=== PATIENT | female | born 1965 | race Caucasian/White ===

== ENCOUNTER → 2017-02-20 | Outpatient (CLI) | payer BC ==
--- NOTE | 2017-02-20 16:26 | REPMRS ---
Patient History The patient states she had a clinical breast exam in 02/16 Family history of ovarian cancer in paternal aunt at age 50 or over, endometrial cancer in paternal grandmother at age 60, and ovarian cancer in paternal grandmother at age 69. Took hormonal contraceptives for 8 years. Digital Woman Screen Mammo: February 20, 2017 - Exam #: [id number] Bilateral CC and MLO view(s) were taken. Technologist: Rosie Villalta, Technologist Prior study comparison: February 20, 2016, digital woman screen mammo performed at [facility] [employer] [facility]. February 14, 2015, digital woman screen mammo performed at [facility] [employer] [facility]. FINDINGS: There are scattered fibroglandular densities. There has been no change in the appearance of the mammogram from the prior studies. There is a mild amount of residual fibroglandular tissue which is fairly symmetric. There is no interval development of dominant mass, architectural distortion, or clustered microcalcification suggestive of malignancy. ASSESSMENT: BI-RADS/ACR category 1 mammogram. Negative. Recommendation Routine screening mammogram in 1 year (for women over age 40). This mammogram was interpreted with the aid of an FDA-approved computer-aided dectection system. Electronically Signed By: Jay Rosa MD 02/20/17 [id number]
== END ==
LOC: M WHC 14:34
PROVIDERS: ATTEND Nurse Practitioner Family
DX: Z12.31 Encounter for screening mammogram for malignant neoplasm of breast (principal); Z80.41 Family history of malignant neoplasm of ovary; Z92.0 Personal history of contraception; Z80.49 Family history of malignant neoplasm of other genital organs

== ENCOUNTER → 2018-02-24 | Outpatient (CLI) | payer BC | LOC: M WHC 14:35 | DX: Z12.31 Encounter for screening mammogram for malignant neoplasm of breast (principal); E65 Localized adiposity; Z78.0 Asymptomatic menopausal state; Z92.0 Personal history of contraception | CPT/HCPCS: 77067; G0123 ==

== ENCOUNTER → 2018-02-24 | Outpatient (REF) | payer BC | LOC: M SFHCWAGY 15:43 | DX: Z12.4 Encounter for screening for malignant neoplasm of cervix (principal) | CPT/HCPCS: G0123 ==

== ENCOUNTER → 2018-04-28 | Outpatient (REF) | payer BC ==
[2018-04-30 14:18] LABS: HPV HYBRID CAPTURE II Negative (Negative)
== END ==
LOC: M SFHCWAGY 11:35
DX: R87.615 Unsatisfactory cytologic smear of cervix (principal)
CPT/HCPCS: G0123

== ENCOUNTER 2019-02-17 07:14 | Day surgery (SDC) | payer BC ==
[~2019-02-17] VITALS: Ht 165.1 cm; Wt 62.1 kg
[~2019-02-17 07:14] MED LIST: LIDOCAINE 1% MDV 20ML VIAL SQ PRN; LR 1,000 ML IV ONE; ceFAZolin SOD 1 GM in D5W MINI-BAG PLUS 50 ML IV ONE
[2019-02-17] MEDS ORDERED: BUPIVACAINE/EPIN 0.25% 30 ML VIAL As Ordered ONE (08:45)
[2019-02-17] MEDS ORDERED: fentaNYL 100 MCG/2 ML INJECTION (J3010) As Ordered ONE (09:08)
[2019-02-17] MEDS ORDERED: ONDANSETRON 4MG/2ML VIAL (J2405) As Ordered ONE (09:08)
[2019-02-17] MEDS ORDERED: PROPOFOL 200 MG/20 ML VIAL As Ordered ONE (09:08)
[2019-02-17] MEDS ORDERED: LIDOCAINE 2% INJ 100 MG/5 ML SDV (FOR ANES.) As Ordered ONE (09:08)
[2019-02-17] MEDS ORDERED: dexameTHASONE 4 MG/ML 1ML VIAL (J1100) As Ordered ONE (09:08)
[2019-02-17] MEDS ORDERED: KETOROLAC 60 MG/2 ML VIAL (J1885) As Ordered ONE (09:08)
[2019-02-17] MEDS ORDERED: MIDAZOLAM INJ 2 MG/2 ML VIAL (J2250) As Ordered ONE (09:08)
[2019-02-17] MEDS ORDERED: ePHEDrine SULFATE 25 MG/5 ML(5MG/ML) SYRINGE As Ordered ONE (09:32)
--- NOTE | 2019-02-17 10:00 | RO ---
DATE OF PROCEDURE: 02/17/2019 PREOPERATIVE DIAGNOSIS: Left subcostal lipoma (trunk). POSTOPERATIVE DIAGNOSIS: Left subcostal lipoma (trunk), 3 cm. PROCEDURE: Excision of left subcostal lipoma. SURGEON: Praful Hills Jr., MD ANESTHESIA: Local with sedation. DESCRIPTION OF PROCEDURE: Brief procedure summary: The patient was brought to the operating room after preoperatively evaluating the patient's abdomen and the left subcostal/right on the edge of her ribs on the left-hand side. There was some fullness and evidence of a probable lipoma in this area. In any case, at this time, this area was marked, and she was brought to the operating room, was prepped and draped in the usual sterile fashion. Given intravenous (IV) sedation and local anesthesia after identifying the area again intraoperatively and marking this, it was circumferentially blocked with local Marcaine with epinephrine. A small transverse incision was made over the top of this, and electrocautery was used to go through the subcutaneous tissue down to the Pal layer. Once I was through Pal layer, there was definitely a thickened area of fatty tissue, and this compared to the surrounding area, but it was not a well-defined lipoma, and the area that I had marked out preoperatively, I excised this additional fatty tissue and down to the level of the fascia. The fascia was not entered or interrupted. The area was examined again and revealed the fullness appreciably gone after excision of this area, and the area was closed with 3-0 Vicryl deep layer, 4-0 Vicryl subcuticular. Steri-Strips and a dry sterile dressing were applied. The patient was awakened from her anesthesia and brought to the recovery room awake, alert, and hemodynamically stable. Sponge and needle counts correct times two.
[2019-02-17 10:28] VITALS: BP 124/67
== END 2019-02-17 10:30 | disposition home or self-care (01) ==
LOC: M SDC 07:14
PROVIDERS: ATTEND Surgery
DX: D17.1 Benign lipomatous neoplasm of skin and subcutaneous tissue of trunk (principal); Z78.0 Asymptomatic menopausal state
CPT/HCPCS: 21931; 88304; J0690; J1100; J1885; J2250; J2405; J3010

== ENCOUNTER → 2019-02-23 | Outpatient (CLI) | payer BC ==
--- NOTE | 2019-02-23 10:57 | REPMRS ---
Patient History The patient states she had a clinical breast exam in 01/2019. Family history of ovarian cancer at age 69 in paternal grandmother, ovarian cancer at age 50 or over in paternal aunt, endometrial cancer at age 60 in paternal grandmother. Took hormonal contraceptives for 8 years. Digital Woman Screen Mammo: February 23, 2019 - Exam #: [id number] Bilateral CC and MLO view(s) were taken. Technologist: Rosie Villalta, Technologist Prior study comparison: February 08, 2014, bilateral bilat screen digital mammo, performed at [facility] ([facility] FINDINGS: The breast tissue is almost entirely fat. Bilateral screening digital mammogram wit tomosynthesis. The patient states that there are no palpable abnormalities or other breast complaints. [facility] Crcinoma Otoniel is: The breasts are almost entirely fatty.. 8.8% There is no interval development of dominant mass, areas of architectural distortion, or clustered microcalcification typical of malignancy. There are no additional findings with tomosynthesis. No significant changes when compared with prior studies. Assessment: BI-RADS/ACR category 1 mammogram. Negative Mammogram. Recommendation Routine screening mammogram in 1 year (for women over age 40). This mammogram was interpreted with the aid of an FDA-approved computer-aided dectection system. A. Negative x-ray reports should not delay biopsy if a dominant or clinically suspicious mass is present. B. Not all cancers are identified by mammography. C. Adenosis and dense breast may obscure an underlying neoplasm. Electronically Signed By: Jay Watson M.D. 02/23/19 [id number]
== END ==
LOC: M WHC 09:18
PROVIDERS: ATTEND Nurse Practitioner Family
DX: Z12.31 Encounter for screening mammogram for malignant neoplasm of breast (principal); Z92.0 Personal history of contraception

== ENCOUNTER → 2020-02-25 | Outpatient (CLI) | payer BC ==
--- NOTE | 2020-02-25 12:30 | REPMRS ---
Patient History Family history of ovarian cancer at age 69 in paternal grandmother, ovarian cancer at age 50 or over in paternal aunt, endometrial cancer at age 60 in paternal grandmother. Took hormonal contraceptives for 8 years. 3D TOMOSYNTHESIS WAS PERFORMED. The Shreya Souza lifetime risk for breast cancer is 8.5%. VOLPARA DENSITY B. Digital Woman Screen Mammo: February 25, 2020 - Exam #: [id number] Bilateral CC and MLO view(s) were taken. Technologist: Danelle Velez, Technologist Prior study comparison: February 23, 2019, bilateral digital woman screen mammo performed at [facility]. February 24, 2018, bilateral digital woman screen mammo performed at [facility]. FINDINGS: There are scattered fibroglandular densities. There has been no change in the appearance of the mammogram from the prior studies. There is a mild amount of residual fibroglandular tissue which is fairly symmetric. There is no interval development of dominant mass, architectural distortion, or clustered microcalcification suggestive of malignancy. Assessment: BI-RADS/ACR category 1 mammogram. Negative Mammogram. Recommendation Routine screening mammogram in 1 year (for women over age 40). This mammogram was interpreted with the aid of an FDA-approved computer-aided dectection system. Electronically Signed By: Jay Rosa MD 02/25/20 [id number]
== END ==
LOC: M WHC 10:56
PROVIDERS: ATTEND Nurse Practitioner Family
DX: Z12.31 Encounter for screening mammogram for malignant neoplasm of breast (principal); Z80.41 Family history of malignant neoplasm of ovary; Z80.49 Family history of malignant neoplasm of other genital organs

== ENCOUNTER → 2021-03-01 | Outpatient (CLI) | payer BC ==
--- NOTE | 2021-03-01 15:37 | REPMRS ---
Patient History The patient states she had a clinical breast exam in January 2021. Family history of ovarian cancer at age 69 in paternal grandmother, ovarian cancer at age 50 or over in paternal aunt, endometrial cancer at age 60 in paternal grandmother. Took hormonal contraceptives for 8 years. No breast complaints today Patient signed the [facility] 1st covid vaccine 11/09/20-left arm-Pfizer 2nd covid vaccine 11/30/20-left arm Priors on PACS Patient Identification Verified Digital Woman Screen Mammo: March 01, 2021 - Exam #: [id number] Bilateral CC and MLO view(s) were taken. Technologist: Zoe Clement, Technologist Prior study comparison: February 25, 2020, bilateral digital woman screen mammo performed at [facility]. February 23, 2019, bilateral digital woman screen mammo performed at [facility]. FINDINGS: The breast tissue is almost entirely fat. Screening. Digital screening (2D) mammography was performed bilaterally in the CC and MLO projections. Additionally, breast tomosynthesis (3D mammography) was performed bilaterally in the CC and MLO projections. Todays exam was compared to the prior exam/exams. By history, the patient has no complaints of a palpable breast abnormality or other significant breast complaints. The breasts are unchanged in size and shape. There are no dylan-soft tissue densities or spiculated masses. There is no internal architectural distortion. Once again, stable benign appearing calcifications are seen.There are no suspicious dylan-calcific clusters. Skin thickening or nipple retraction is not present. IMPRESSION: BI-RADS Category 2- Benign Findings. There is no evidence of malignant alteration of the breasts. Followup examination recommended in one year. The Volpara volumetric breast density category is A, the breasts are almost entirely fatty. This mammogram was read with the assistance of [employer],an FDA approved computer aided detection system for mammography. The lifetime Tyrer-Cuzick score is 8.3 % Negative x-ray reports should not delay surgical consultation if a dominant or clinically suspicious mass is present. Not all breast cancers can be identified by mammography. Therefore, we recommend that you continue to perform regular breast self-examination and physical examination and then promptly contact your physician of any concerns or changes. Adenosis and dense breasts may obscure an underlying neoplasm. Assessment: BI-RADS/ACR category 2 mammogram. Benign Findings. Recommendation Routine screening mammogram of both breasts in 1 year. Electronically Signed By: Colin Sanders DO 03/01/21 [id number]
== END ==
LOC: M WHC 13:52
PROVIDERS: ATTEND Advanced Practice Midwife
DX: Z12.31 Encounter for screening mammogram for malignant neoplasm of breast (principal)

== ENCOUNTER → 2021-03-01 | Outpatient (REF) | payer BC | LOC: M SFHCWAGY 19:07 | PROVIDERS: ATTEND Advanced Practice Midwife | DX: Z12.4 Encounter for screening for malignant neoplasm of cervix (principal) ==

== ENCOUNTER → 2022-05-14 | Outpatient (CLI) | payer BC | LOC: M WHC 14:45 | PROVIDERS: ATTEND Nurse Practitioner Family | DX: Z12.31 Encounter for screening mammogram for malignant neoplasm of breast (principal) ==

== ENCOUNTER → 2023-05-16 | Outpatient (REF) | payer BC | LOC: M SFHCWAGY 10:14 | PROVIDERS: ATTEND Nurse Practitioner Family | DX: Z12.4 Encounter for screening for malignant neoplasm of cervix (principal) ==

== ENCOUNTER → 2023-05-16 | Outpatient (CLI) | payer OTHER, SELFPAY | LOC: M WHC 13:57 | PROVIDERS: ATTEND Nurse Practitioner Family | DX: Z12.31 Encounter for screening mammogram for malignant neoplasm of breast (principal) ==

== ENCOUNTER → 2024-05-20 | Outpatient (CLI) | payer OTHER, SELFPAY | LOC: M WHC 16:09 | PROVIDERS: ATTEND Nurse Practitioner Family | DX: Z12.31 Encounter for screening mammogram for malignant neoplasm of breast (principal) ==

== ENCOUNTER 2025-07-27 14:24 | Outpatient (RCR) | payer OTHER | END 2025-08-01 | LOC: M PT 14:24 | PROVIDERS: ATTEND Physician Assistant | DX: N81.11 Cystocele, midline (principal) ==

== ENCOUNTER → 2025-08-19 | Outpatient (REF) | payer OTHER ==
[2025-08-21 12:52] LABS: HPV APTIMA Not Detected (Not Detected)
== END ==
LOC: M SFHCWAGY 15:23
PROVIDERS: ATTEND Physician Assistant
DX: Z12.4 Encounter for screening for malignant neoplasm of cervix (principal)
CPT/HCPCS: 87624; G0123

== ENCOUNTER → 2025-08-19 | Outpatient (CLI) | payer OTHER | LOC: M WHC 13:03 | PROVIDERS: ATTEND Obstetrics & Gynecology | DX: Z12.31 Encounter for screening mammogram for malignant neoplasm of breast (principal) ==